=== PATIENT | female | born 1965 | race Caucasian/White ===

== ENCOUNTER 2017-09-08 12:10 | Emergency (ER) | payer MEDICAID ==
[~2017-09-08] VITALS: Ht 165.1 cm; Wt 84.4 kg
[2017-09-08 12:31] VITALS: Ht 165.1 cm; Wt 84.4 kg
[2017-09-08 15:59] VITALS: BP 128/99
== END 2017-09-08 16:44 | disposition home or self-care (01) ==
LOC: ED 12:10
DX: K92.1 Melena (principal); D50.8 Other iron deficiency anemias; R42 Dizziness and giddiness; R11.0 Nausea; J45.909 Unspecified asthma, uncomplicated

== ENCOUNTER 2018-02-18 15:24 | Emergency (ER) | payer OTHER ==
[~2018-02-18] VITALS: Ht 162.6 cm; Wt 87.1 kg
[2018-02-18 15:28] VITALS: Ht 162.6 cm; Wt 87.1 kg
[2018-02-18 18:33] VITALS: BP 137/81
== END 2018-02-18 18:33 | disposition home or self-care (01) ==
LOC: ED 15:24
DX: M54.42 Lumbago with sciatica, left side (principal)
CPT/HCPCS: J1885

== ENCOUNTER 2018-02-24 11:51 | Emergency (ER) | payer OTHER ==
[~2018-02-24] VITALS: Ht 165.1 cm; Wt 86.2 kg
[2018-02-24 11:56] VITALS: Ht 165.1 cm; Wt 86.2 kg
[2018-02-24 13:21] VITALS: BP 124/71
== END 2018-02-24 14:38 | disposition home or self-care (01) ==
LOC: ED 11:51
DX: M54.42 Lumbago with sciatica, left side (principal); M54.41 Lumbago with sciatica, right side; J45.909 Unspecified asthma, uncomplicated; I10 Essential (primary) hypertension
CPT/HCPCS: J1885; J2270

== ENCOUNTER 2018-03-10 01:26 | Emergency (ER) | payer OTHER ==
[~2018-03-10] VITALS: Ht 165.1 cm; Wt 81.6 kg
[2018-03-10 01:40] VITALS: Ht 165.1 cm; Wt 81.6 kg
[2018-03-10 03:43] VITALS: BP 124/95
== END 2018-03-10 03:43 | disposition home or self-care (01) ==
LOC: ED 01:26
DX: M54.32 Sciatica, left side (principal); J45.909 Unspecified asthma, uncomplicated; I10 Essential (primary) hypertension; Z98.890 Other specified postprocedural states
CPT/HCPCS: J1885; J2930

== ENCOUNTER 2018-03-30 03:56 | Emergency (ER) | payer OTHER ==
[~2018-03-30] VITALS: Ht 165.1 cm; Wt 81.6 kg
[2018-03-30 04:05] VITALS: Ht 165.1 cm; Wt 81.6 kg
[2018-03-30 05:04] VITALS: BP 159/80
== END 2018-03-30 05:04 | disposition home or self-care (01) ==
LOC: ED 03:56
DX: F41.9 Anxiety disorder, unspecified (principal); G89.29 Other chronic pain; M54.9 Dorsalgia, unspecified; M54.2 Cervicalgia

== ENCOUNTER 2019-06-24 16:34 | Emergency (ER) | payer SELFPAY ==
[~2019-06-24] VITALS: Ht 160 cm; Wt 88.0 kg
[2019-06-24 16:42] VITALS: Ht 160 cm; Wt 88.0 kg
[2019-06-24 18:19] LABS: BASOPHIL % 0.4 % (0-2); PLATELET COUNT 257 x10^3mcL (130-400)
[2019-06-24 18:54] LABS: CARBON DIOXIDE 26.9 mmol/L (21-32); CREATININE SERUM 1.1 mg/dL (0.6-1.0); POTASSIUM SERUM 4.4 mmol/L (3.5-5.1)
[2019-06-24 18:58] LABS: ALBUMIN 3.4 g/dL (3.4-5.0); BILIRUBIN TOTAL 0.2 mg/dL (0.20-1.00); TOTAL PROTEIN, SERUM 7.1 g/dL (6.4-8.2)
[2019-06-24 20:14] VITALS: BP 142/87
== END 2019-06-24 20:14 | disposition home or self-care (01) ==
LOC: ED 16:34
PROVIDERS: Emergency Medicine
DX: H81.10 Benign paroxysmal vertigo, unspecified ear (principal); J45.909 Unspecified asthma, uncomplicated; I10 Essential (primary) hypertension
CPT/HCPCS: 36415; J8597; Q0162